=== PATIENT | female | born 1990 | race African-American/Black ===

== ENCOUNTER 2020-10-12 12:29 | Inpatient (IN) | payer MEDICAID ==
[2020-10-12] MEDS ORDERED: ZOLPIDEM TARTRATE 10 MG TABLET PO PRN (12:45)
[2020-10-12 14:21] LABS: COVID AG,FIA SOURCE NASOPHARYNGEAL
[2020-10-12 16:25] VITALS: BP 150/99
[2020-10-12 17:30] VITALS: BP 118/67
[2020-10-12 20:36] VITALS: BP 115/72
[2020-10-13 03:20] VITALS: BP 117/70
[2020-10-13] MEDS: HALOPERIDOL 5 MG TABLET PO PRN ×2 (07:47→12:12)
[2020-10-13] MEDS: LORazepam 2 MG TABLET PO PRN ×2 (07:47→12:12)
[2020-10-13 08:05] VITALS: BP 130/81
[2020-10-13] MEDS ORDERED: ONDANSETRON HCL 4 MG TABLET PO PRN (08:15)
[2020-10-13] MEDS ORDERED: CloNIDine HCL 0.1 MG TABLET PO PRN (08:15)
[2020-10-13] MEDS ORDERED: ACETAMINOPHEN 325 MG TABLET PO PRN (08:15)
[2020-10-13] MEDS ORDERED: PETROLATUM,WHITE 28 GM JELLY TP PRN (08:15)
[2020-10-13] MEDS ORDERED: NICOTINE 14 MG/24 HOUR PATCH TD PRN (08:15)
[2020-10-13] MEDS ORDERED: IBUPROFEN 400 MG TABLET PO PRN (08:15)
[2020-10-13] MEDS ORDERED: DOCUSATE SODIUM 100 MG CAPSULE PO PRN (08:15)
[2020-10-13] MEDS ORDERED: LOPERAMIDE HCL 2 MG CAPSULE PO PRN (08:15)
[2020-10-13] MEDS ORDERED: ALBUTEROL SULFATE HFA 90 MCG/PUFF 8 GM INHALER IH PRN (08:15)
[2020-10-13] MEDS ORDERED: GuaiFENesin/D-METHORPHAN [SUGAR-FREE] 200-20MG/10 ML SYRUP UDCUP PO PRN (08:15)
[2020-10-13] MEDS ORDERED: MAGNESIUM HYDROXIDE SUSPENSION 30 ML UDCUP PO PRN (08:15)
[2020-10-13] MEDS ORDERED: MAG HYDROX/AL HYDROX/SIMETH ES 30 ML SUSPENSION UDCUP PO PRN (08:15)
[2020-10-13 09:10] LABS: BASOPHILS % (AUTO) 0.2 % (0.0-2.0); EOSINOPHILS % (AUTO) 0.1 % (1.0-6.0); HEMATOCRIT 38.7 % (36-46); HEMOGLOBIN 12.5 g/dL (12.0-16.0); LYMPHOCYTES % (AUTO) 15.6 % (22.0-44.0); MEAN CORPUSCULAR HEMOGLOBIN 28.1 pg (26.0-34.0); MEAN CORPUSCULAR HGB CONC 32.3 G/dL (31.0-37.0); MEAN CORPUSCULAR VOLUME 87 fL (80-100); MONOCYTES # (AUTO) 0.5 K/uL (0.1-1.0); NEUTROPHILS # (AUTO) 5.1 K/uL (1.8-7.7); NEUTROPHILS % (AUTO) 76.1 % (40.0-70.0); PLATELET COUNT (AUTO) 243 K/uL (150-450); RED BLOOD CELL COUNT(AUTO) 4.44 MIL/uL (4.00-5.20); RED CELL DISTRIBUTION WIDTH 13.7 % (11.5-14.5)
[2020-10-13 09:23] LABS: HEMOGLOBIN A1C 5.5 % (3.8-5.6)
[2020-10-13 10:35] LABS: ALANINE AMINOTRANSFERASE 31 U/L (12-78); ALBUMIN 3.9 g/dL (3.4-5.0); ALKALINE PHOSPHATASE 88 U/L (46-116); ASPARTATE AMINOTRANSFERASE 17 U/L (15-37); BILIRUBIN,TOTAL 0.5 mg/dL (0.1-1.0); CALCIUM, TOTAL 9.2 mg/dL (8.8-10.5); CARBON DIOXIDE 27 mmol/L (22-29); CHOL/HDL RATIO 3.4 (3.9-5.7); CHOLESTEROL 196 mg/dL (131-200); FREE T4 (FREE THYROXINE) 1.46 ng/dL (0.76-1.46); GLOMERULAR FILTR. RATE CALC > 60 mL/min (>60); GLUCOSE,RANDOM 102 mg/dL (70-110); HCG,QUANTITATIVE < 1 mIU/mL (0-6); HDL CHOLESTEROL 58 mg/dL (40-60); LDL CHOL (CALC.) 126 mg/dL (0-130); THYROID STIMULATING HORMONE 0.88 uIU/mL (0.36-3.74); TOTAL PROTEIN, SERUM 7.8 g/dL (6.4-8.2); TRIGLYCERIDES 61 mg/dL (15-150); UREA NITROGEN, BLOOD 8 mg/dL (7-18)
[2020-10-13 10:41] LABS: ANION GAP 12 mmol/L (8-16); CHLORIDE 99 mmol/L (98-107); POTASSIUM 3.6 mmol/L (3.5-5.1); SODIUM SERUM 138 mmol/L (136-145)
[2020-10-13] MEDS: SERTRALINE HCL 50 MG TABLET PO SCH (11:44)
[2020-10-13] MEDS ORDERED: LORazepam 2 MG/ML VIAL ONE (12:42)
[2020-10-13] MEDS ORDERED: HALOPERIDOL LACTATE 5 MG/ML VIAL ONE (12:42)
[2020-10-13] MEDS ORDERED: DiphenhydrAMINE HCL 50 MG/ML VIAL ONE (12:43)
[2020-10-13] MEDS ORDERED: LORazepam 2 MG/ML VIAL IM ONE (12:45)
[2020-10-13] MEDS ORDERED: DiphenhydrAMINE HCL 50 MG/ML VIAL IM ONE (12:45)
[2020-10-13] MEDS ORDERED: HALOPERIDOL LACTATE 5 MG/ML VIAL IM ONE (12:45)
[2020-10-14 00:52] VITALS: BP 100/72
[2020-10-14 08:30] VITALS: BP 112/74
[2020-10-14] MEDS: SERTRALINE HCL 50 MG TABLET PO SCH (08:43)
[2020-10-14] MEDS: MULTIVITAMINS WITH MINERALS, THERAPEUTIC TABLET PO SCH (08:43)
[2020-10-14] MEDS: LORazepam 2 MG TABLET PO PRN (08:43)
[2020-10-14] MEDS: FOLIC ACID 1 MG TABLET PO SCH (08:43)
[2020-10-14] MEDS: THIAMINE 100 MG TABLET PO SCH (08:43)
[2020-10-14] MEDS: HALOPERIDOL 5 MG TABLET PO PRN (08:43)
[2020-10-14 16:29] VITALS: BP 114/70
[2020-10-14] MEDS ORDERED: LORazepam 2 MG/ML VIAL IM ONE (16:45)
[2020-10-14] MEDS ORDERED: DiphenhydrAMINE HCL 50 MG/ML VIAL IM ONE (16:45)
[2020-10-14] MEDS ORDERED: HALOPERIDOL LACTATE 5 MG/ML VIAL IM ONE (16:45)
[2020-10-14] MEDS: LURASIDONE HCL 40 MG TABLET PO SCH (17:00)
[2020-10-15] MEDS: HALOPERIDOL 5 MG TABLET PO PRN ×2 (08:12→16:50)
[2020-10-15] MEDS: FOLIC ACID 1 MG TABLET PO SCH (08:12)
[2020-10-15] MEDS: THIAMINE 100 MG TABLET PO SCH (08:12)
[2020-10-15] MEDS: MULTIVITAMINS WITH MINERALS, THERAPEUTIC TABLET PO SCH (08:12)
[2020-10-15] MEDS: SERTRALINE HCL 50 MG TABLET PO SCH (08:12)
[2020-10-15] MEDS: LORazepam 2 MG TABLET PO PRN ×2 (08:12→16:50)
[2020-10-15 08:13] VITALS: BP 115/71
[2020-10-15 16:19] VITALS: BP 138/82
[2020-10-15] MEDS: LURASIDONE HCL 40 MG TABLET PO SCH (16:49)
[2020-10-16 06:29] VITALS: BP 126/74
[2020-10-16 08:10] VITALS: BP 140/95
[2020-10-16] MEDS: SERTRALINE HCL 50 MG TABLET PO SCH (08:39)
[2020-10-16] MEDS: MULTIVITAMINS WITH MINERALS, THERAPEUTIC TABLET PO SCH (08:47)
[2020-10-16] MEDS: FOLIC ACID 1 MG TABLET PO SCH (08:47)
[2020-10-16] MEDS: THIAMINE 100 MG TABLET PO SCH (08:48)
[2020-10-16 09:12] VITALS: BP_SYST 110
[2020-10-16 16:04] VITALS: BP 135/81
[2020-10-16] MEDS: LURASIDONE HCL 40 MG TABLET PO SCH (16:20)
[2020-10-17 01:26] VITALS: BP 133/76
[2020-10-17] MEDS: SERTRALINE HCL 50 MG TABLET PO SCH (08:31)
[2020-10-17] MEDS: THIAMINE 100 MG TABLET PO SCH (08:31)
[2020-10-17] MEDS: MULTIVITAMINS WITH MINERALS, THERAPEUTIC TABLET PO SCH (08:31)
[2020-10-17] MEDS: FOLIC ACID 1 MG TABLET PO SCH (08:31)
[2020-10-17] MEDS: LURASIDONE HCL 40 MG TABLET PO SCH (17:00)
[2020-10-18] MEDS: FOLIC ACID 1 MG TABLET PO SCH (08:13)
[2020-10-18] MEDS: MULTIVITAMINS WITH MINERALS, THERAPEUTIC TABLET PO SCH (08:13)
[2020-10-18] MEDS: SERTRALINE HCL 50 MG TABLET PO SCH (08:14)
[2020-10-18] MEDS: THIAMINE 100 MG TABLET PO SCH (08:21)
[2020-10-18] MEDS: LORazepam 2 MG TABLET PO PRN (09:34)
[2020-10-18] MEDS: HALOPERIDOL 5 MG TABLET PO PRN (09:34)
[2020-10-18] MEDS: OLANZapine 5 MG TABLET PO SCH ×2 (09:49→21:00)
[2020-10-18 16:16] VITALS: BP 133/64
[2020-10-18] MEDS ORDERED: LURASIDONE HCL 60 MG TABLET PO SCH (17:00)
[2020-10-19 00:04] VITALS: BP 126/66
[2020-10-19] MEDS: FOLIC ACID 1 MG TABLET PO SCH (08:47)
[2020-10-19] MEDS: SERTRALINE HCL 50 MG TABLET PO SCH (08:47)
[2020-10-19] MEDS: THIAMINE 100 MG TABLET PO SCH (08:47)
[2020-10-19] MEDS: MULTIVITAMINS WITH MINERALS, THERAPEUTIC TABLET PO SCH (08:47)
[2020-10-19] MEDS: OLANZapine 5 MG TABLET PO SCH (08:48)
[2020-10-19] MEDS: LORazepam 2 MG TABLET PO PRN (08:58)
[2020-10-19] MEDS: HALOPERIDOL 5 MG TABLET PO PRN (09:25)
[2020-10-19 16:10] VITALS: BP 130/88
[2020-10-19] MEDS ORDERED: OLAN5TAB52 PO (16:39)
[2020-10-19] MEDS ORDERED: SERT-158 PO (16:39)
== END 2020-10-19 20:01 | disposition home or self-care (01) | DRG 751 ==
LOC: B3A 15:30
DX: F33.3 Major depressive disorder, recurrent, severe with psychotic symptoms (principal); G47.00 Insomnia, unspecified; Z20.822 Contact with and (suspected) exposure to COVID-19; R03.0 Elevated blood-pressure reading, without diagnosis of hypertension
CPT/HCPCS: 80053; 80061; 83036; 84436; 84439; 84443; 84702; 85025; J1200; J1630; J2060